=== PATIENT | female | born 1970 | race Caucasian/White ===

== ENCOUNTER 2024-12-10 08:17 | Outpatient (CLI) | payer OTHER, SELFPAY ==
--- NOTE | ~2024-12-10 | XR_ITS ---
EXAMINATION: XR lg joint inject/asp w image DATE: 12/10/2024 09:24 INDICATION: Right hip arthritis TECHNIQUE: A time-out was performed to verify the patient's name, date of , and procedure to be performed. The procedure including the risks, benefits, and alternatives was discussed with the patient. Risks discussed included bleeding and infection. The patient understood the risks and agreed to proceed. The skin overlying the right hip joint was prepped and draped in usual sterile fashion. Anesthetic was administered with 1% lidocaine subcutaneously. A 22 G needle was advanced under fluoroscopic guidance into the joint. Injection of 1 mL of Omnipaque 240 confirmed intra-articular position of the needle. Subsequently, injectate consisting of 3 mL of a 2:1 mixture of 0.5% bupivacaine: 80 mg/mL Depo-Medrol for a total dosage of 80 mg Depo-Medrol was instilled. Washout of contrast was seen confirming intra-articular administration. The needle was removed and the entry site was cleaned and dressed. There were no immediate complications. Fluoroscopy exposure time was 0.1 minutes. The total number of images was 2. Total DAP was 0.535 Gycm^2. FINDINGS: Real-time fluoroscopy demonstrates the needle and injected contrast in the right hip joint. Patient's pain prior to procedure:8/10. Patient's pain following the procedure: 07/29. IMPRESSION: 1. Successful right hip joint injection of local anesthetic and steroid with decrease in the patient's presenting pain. Reviewed, dictated and finalized at location A. IMPRESSION: 1. Successful right hip joint injection of local anesthetic and steroid with de crease in the patient's presenting pain.
--- OUTSIDE RECORDS SUMMARY | 2024-12-10 08:37 | XMS_ITS | Encounter Summary ---
Author Organization [facility] Address [address] [place] [address] Phone Care Team Providers Care Content Developer Name Role Phone Mohit Ch MD Primary Care Provider [phone] Lucas Brar MD Unavailable Guanaco Goss MD Unavailable Unavai lable Reason for Visit * Reason Comments Medication Refill Encounter Details Date Type Department Care Team (Late st Contact Info) Description 10/05/2021 Refill [facility] [address] [place] [address] Mohit Ch MD [address] [address] Medication Refill Social History Tobacco Use Types Packs/Day Years Used Date Smoking Tobacco: Former Smokeless Tobacco: Never Comments:quit in 2012 Alcohol Use Standard Drinks/Week Comments Yes 0 (1 standard drink = 0.6 oz pur e alcohol) Socially PHQ-2 Answer Date Recorded Total Score - Questions 1-9 0 08/20 Sexually Active Control Partners Comments Not Currently Comments No Sex and Gender Information Value Date Recorded Sex Assigned at Not on file Legal Sex Female 12:26 AM CDT Gender Identity Not on file Sexual Orientation Not on file COVID-19 Exposure Response Date Recorded In the last 10 days, have yo u been in contact with someone who was confirmed or suspected to have Coronavirus/COVID-19? No / Unsure 09/12/2021 2:40 PM CDT documented as of this encounter Miscellaneous Notes * Telephone Encounter - Julieta Aburto RN - 10/06/2021 9:23 AM CDT PRN medication requires review from provider Per nursing clinical judgement, provider to review and approve the medication(s) order(s) if appropriate. Requested Prescriptions Pending Prescriptions Disp Refills albuterol 108 (90 Base) MCG/ACT Aerosol Solution [Pharmacy Med Name: ALBUTEROL HFA (PROVENTIL) INH]18 g 2 Sig: INHALE 2 PUFFS BY MOUTH EVERY 4 HOURS NEEDED FOR WHEEZING OR SHORTNESS OF BREATH. Short Acting Inhaled Beta-Agonists Protocol Passed - 10/05/2021 2:11 PM Passed - Visit with relevant provider in past 12 months or upcoming 90 days Recent Visits Date Type Provider Dept 09/12/21 Office Visit Mohit Ch MD [facility] Showing recent visits within past 365 days and meeting all other requirements Future Appointments No visits were found meeting these conditions. Showing future appointments within next 90 days and meeting all other requirements documented in this encounter Plan of Treatment Not on file documented as of this encounter Visit Diagnoses Not on filedocumented in this encounter Additional Health Concerns Assessment Noted Time PHQ-9 Depression Total Score: 0 09/13/19 22 3:00 PM CDT documented as of this encounter Care Teams Content Developer Relationship Specialty Start Date End Date Mohit Ch MD #2 [facility] [address] [place] [address] PCP - General Family Medicine 09/12/21 04/27/24 Lucas Brar MD #[address] [address] Consulting Physician Colon and Rectal Surgery 10/13/21 Guanaco Goss MD [address] [place] [address] Consulting Physician Cardiovascular Disease - Cardiology 10/20/21 04/09/24 documented as of this encounter
--- OUTSIDE RECORDS SUMMARY | 2024-12-10 08:37 | XMS_ITS | Clinical Summary ---
Author Organization [facility] Address [address] [place] [address] Phone Care Team Providers Care Distribution Engineering Technologist Name Role Phone uLcas Brar MD Unavailable Allergies Active Allergy Reactions Criticality Noted Date Comments Propoxyphene Other (see Comments) Low 09/20/2020 Medications aspirin EC 81 MG Tablet Delayed Response Take by mouth. Activ e hydroCHLOROthia zide 25 MG Tablet Take by mouth. 7 Active metoprolol tartrate (LOPRESSOR) 100 MG Tablet Take by mouth. 8 Active simvastatin (ZOCOR) 40 MG Tablet Take by mouth. 8 Active meloxicam (MOBIC) 15 MG Tablet Take 15 mg by mouth. 2 Active metoprolol Succinate (TOPROL-XL) 50 MG TABLET SR 24 HR Take 50 mg by mouth daily. Active albuterol 108 (90 Base) MCG/ACT Aerosol Solution INHALE 2 PUFFS BY MOUTH EVERY 4 HOURS NEEDED FOR WHEEZING OR SHORTNESS OF BREATH. 18 g 2 2 Active Active Problems No known active problems Immunizations Immunization Administration Dates Next Due Influenza Vaccine, Quadrivalent, PF 12/25/2019,0 11/11/2018,01/31/2017 Influenza, Seasonal, Injectable, Undefined 02/12,01/19/2011 TDAP Vaccine 09/15/2012,05/12/2011 Family History Medical History Relation Name Comments Kidney Disease Brother 1 Multiple Sclerosis Brother 2 Heart Disease Father Multiple Sclerosis Father Breast Cancer Mother Relation Name Status Comments Brother 1 Brother 2 Father Mother Social History Tobacco Use Types Packs/Day Years Used Date Smoking Tobacco: Former Smokeless Tobacco: Never Tobacco Cessation:Counseling Given: No Comments:quit in 2012 Alcohol Use Standard Drinks/Week [...] on file Sexual Orientation Not on file Last Filed Vital Signs Vital Sign Reading Time Taken Comments Blood Pressure 122/63 11/07/2021 9:38 AM CDT Pulse 86 11/07/2021 9:38 AM CDT Temperature 36.1 C (96.9 F) 09/12/2021 3:48 PM CDT Respiratory Rate 14 10/31/2021 4:01 PM CDT Oxygen Saturation 96% 10/31/2021 4:01 PM CDT Inhaled Oxygen Concentration - - Weight 86.2 kg (190 lb) 11/07/2021 9:21 AM CDT Height 165.1 cm (5' 5) 11/07/2021 9:21 AM CDT Body Mass Index 31.62 11/07/2021 9:21 AM CDT Plan of Treatment Health Maintenance Due Date Last Done Comments Hepatitis C Virus (HCV) Screening 1969 Hepatitis B Immunization (1 of 3 - 19+ 3-dose series) 1988 Pap Smear 1990 Cervical Cancer Screening (CCS) 05/12/1999 HPV/Cotest 05/12/1999 Cologuard 2014 Colonoscopy 2014 Colorectal Cancer Screening 2014 Immunochemical Fecal Occult Blood 2014 Pneumococcal Immunization (50+ years) (1 of 1 - PCV) 05/12/2019 Zoster Immunization (1 of 2) 05/12/2019 Mammogram 07/08/2021 07/08/2020, 12/20, 04/10/2017 Influenza Immunization (#1) 10/20/202402/20, 12/25/2019, 11/11/2018, Additional history exists SARS-COV-2 Immunization ( - 2023- season) 2024 Respiratory Syncytial Virus (RSV) Immunization (Adult) (1 - 1-dose 75+ series) 2044 DTaP/Tdap/Td Immunization Discontinued 09/15/2012, Discussion re Starting/Frequency of Mammograms Discontinued 07/08/2020, 12/30/2018, 04/10/2017 Human Papillomavirus (HPV) Immunization Aged Out No longer eligible based on patient's age to complete this topic Meningococcal Immunization (ACWY) Aged Out No longer eligible based on patient's age to complete this topic Rotavirus Immunization Aged Out No lo nger eligible based on patient's age to complete this topic Insurance [employer] Care Teams Distribution Engineering Technologist Relationship Specialty Start Date End Date Lucas Brar MD [address] [place] [address] Consulting Physician Colon and Rectal Surgery 10/13/21
--- OUTSIDE RECORDS SUMMARY | 2024-12-10 08:38 | XMS_ITS | Encounter Summary ---
Author Organization [facility] Address [address] [place] [address] Phone Care Team Providers Care Assembler For Puller Over Machine Name Role Phone Fanny Van MD Unavailable Maria Luisa Sousa NP Primary Care Provider [phone]- [phone] Rosa Robison RN Unavailable Unavailabl Rosa Cuba RN Unavailable Unavailabl Annie Early RN Unavailable Unavailab Brant Garg MD Primary Care Provider [phone] Ayesha Luevano RN Unavailable Un available Maria Luisa Sousa NP Primary Care Provider [phone] Brant Pitt MD Primary Care Provider [phone] Maria Luisa Sousa GRAIN COMBINER Primary Care Provider [phone] Kadie Lucero DO Primary Care Provider + [phone] Shin Rainey MD Unavailable [phone] Gianluca Flores MD Unavailable Rosio Cristobal DO Unavailable [phone] Michael Miller MD Unavailable [phone] Leonardo Landis MD Unavailable [phone] Michael Mills MD Primary Care Provi arnold Encounter Details Date Type Department Care Team (Late st Contact Info) Description 02/16/2017 Orders Only [facility] ProviderKelsey MD [address] [place] [phone] Social History Tobacco Use Types Packs/Day Years Used Date Smoking Tobacco: Former Cigarettes Q uit: 2013 Smokeless Tobacco: Never Comments:Smoking History Pac ks/day: 1 Packs Alcohol Use Standard Drinks/Week Comments Yes 0 (1 standard drink = 0.6 oz pur e alcohol) socially Comments Unknown Sex and Gender Information Value Date Recorded Sex Assigned at Not on file Legal Sex Female 12:34 AM CONSUMER MARKETING MANAGER Gender Identity Not on file Sexual Orientation Not on file documented as of this encounter Plan of Treatment Not on file documented as of this encounter Goals Goal Patient Goal Type Associated Problems Recent Progress Patient-Stated? Author BH-Pain Behavioral Health Worsening(12/2018 9:47 AM CDT) No Rosa Robison, ELLEN Note: Patient will describe how unrelieved pain will be managed. documented as of this encounter Procedures Procedure Name Priority Date/Time Associated Diagnosis Comments DISCHARGE LABORATORY CUMULATIVE REPORT 02/16/2017 12:00 AM CONSUMER MARKETING MANAGER CYTOLOGY 02/16/2017 12:00 AM CONSUMER MARKETING MANAGER documented in this encounter Results * DISCHARGE LABORATORY CUMULATIVE REPORT (02/16/2017 12:00 AM CONSUMER MARKETING MANAGER) Narrative 02/16/2017 12:00 AM CONSUMER MARKETING MANAGER Ordered by an unspecified provider. [facility] Provider LAB BLOOD ORDERABLES Lona l Result * CYTOLOGY (02/16/2017 12:00 AM CONSUMER MARKETING MANAGER) Narrative 02/16/2017 12:00 AM CONSUMER MARKETING MANAGER Ordered by an unspecified provider. Historical Provider LAB CYTOLOGY ORDERABLES F inal Result documented in this encounter Visit Diagnoses Not on filedocumented in this encounter Additional Health Concerns Infection Onset Date Last Indicated Resolved Time COVID: Suspected 09/25/2019 09/25/2019 10/09/2019 3:05 AM CDT COVID: Suspected 05/30/2021 05/30/2021 05/30/2021 5:02 PM CDT COVID: Suspected 09/20/2021 09/20/2021 09/20/2021 5:26 PM CDT COVID: Suspected 09/22/2021 09/22/2021 09/23/2021 3:05 AM CDT COVID: Suspected 09/22/2021 09/22/2021 09/23/2021 5:25 AM CDT COVID: Suspected 11/02/2021 11/02/2021 11/02/2021 12:03 PM CDT COVID: Suspected 04/17/2024 04/17/2024 04/17/2024 4:23 PM CONSUMER MARKETING MANAGER documented as of this encounter Care Teams Assembler For Puller Over Machine Relationship Specialty Start Date End Date Maria Luisa Sousa NP [address] [place] [address] PCP - General Family Medicine 01/31/17 05/07/17 [place] [address] [address] PCP - General 05/08/17 09/30/17 Maria Luisa Sousa NP [address] [place] [address] PCP - General Family Medicine 10/01/17 10/11/17 [place] [address] [address] PCP - General 10/12/17 12/09/17 Maria Luisa Sousa NP [address] [place] [address] PCP - General Family Medicine 12/10/17 01/23/19 Kadie Lucero DO PCP - General Family Medicine 01/24/19 09/25/23 Michael Mills MD [address] [place] [address] PCP - General Family Practice 09/26/23 Fanny Van MD Rheumatology 10/19/16 12/11/17 Rosa Robison, RN Registered Nurse 02/08/17 Rosa Robison, RN Registered Nurse 03/13/17 03/29/17 Annie Galan, RN Registered Nurse Pain Management 04/10/17 Ayesha Luevano, RN Registered Nurse 09/21/17 12/11/17 Shin Rainey MD [address] [place] [address] [address] [facility] [place] [address] Consulting Physician Neurology 03/18/19 Gianluca Flores MD [address] [place] [address] [address] [facility] [place] [address] Consulting Physician General Surgery 03/18/19 Rosio Cristobal DO [address] [place] [address] [address] [facility] [place] [address] Consulting Physician Otolaryngology 03/18/19 Michael Miller MD [address] [place] [address] Consulting Physician Orthopedic Surgery 10/23/20 [place] [address] [place] [address] Consulting Physician Orthopedic Surgery 03/16/22 documented as of this encounter
--- OUTSIDE RECORDS SUMMARY | 2024-12-10 08:38 | XMS_ITS | Encounter Summary ---
Author Organization [facility] Address [address] [place] [address] Phone Care Team Providers Care Welder Fabricator Name Role Phone Fanny Van MD Unavailable Maria Luisa Sousa NP Primary Care Provider [phone]- [phone] Rosa Robison RN Unavailable Unavailabl Rosa Cuba RN Unavailable Unavailabl Annie Early RN Unavailable Unavailab Brant Garg MD Primary Care Provider [phone] Ayesha Luevano RN Unavailable Un available Maria Luisa Sousa NP Primary Care Provider [phone] Brant Pitt MD Primary Care Provider [phone] Maria Luisa Sousa SUPPLY REQUIREMENTS OFFICER Primary Care Provider [phone] Kadie Lucero DO Primary Care Provider + [phone] Shin Rainey MD Unavailable [phone] Gianluca Flores MD Unavailable Rosio Cristobal DO Unavailable [phone] Michael Miller MD Unavailable [phone] Leonardo Landis MD Unavailable [phone] Michael Mills MD Primary Care Provi arnold Encounter Details Date Type Department Care Team (Late st Contact Info) Description 02/20/2017 Orders Only [facility] Provider, MD Kelsey [address] [place] [phone] Social History Tobacco Use Types Packs/Day Years Used Date Smoking Tobacco: Former Cigarettes Q uit: 2013 Smokeless Tobacco: Never Comments:Smoking History Pac ks/day: 1 Packs Alcohol Use Standard Drinks/Week Comments Yes 0 (1 standard drink = 0.6 oz pur e alcohol) socially Comments Unknown Sex and Gender Information Value Date Recorded Sex Assigned at Not on file Legal Sex Female 12:34 AM ASSAULT AMPHIBIOUS VEHICLE CREWMAN Gender Identity Not on file Sexual Orientation Not on file documented as of this encounter Plan of Treatment Not on file documented as of this encounter Goals Goal Patient Goal Type Associated Problems Recent Progress Patient-Stated? Author BH-Pain Behavioral Health Worsening(12/2018 9:47 AM CDT) No Rosa Robison, RN Note: Patient will describe how unrelieved pain will be managed. documented as of this encounter Procedures Procedure Name Priority Date/Time Associated Diagnosis Comments DISCHARGE LABORATORY CUMULATIVE REPORT 02/20/2017 12:00 AM ASSAULT AMPHIBIOUS VEHICLE CREWMAN documented in this encounter Results * DISCHARGE LABORATORY CUMULATIVE REPORT (02/20/2017 12:00 AM ASSAULT AMPHIBIOUS VEHICLE CREWMAN) Narrative 02/20/2017 12:00 AM ASSAULT AMPHIBIOUS VEHICLE CREWMAN Ordered by an unspecified provider. Historical Provider LAB BLOOD ORDERABLES Lona l Result documented in this encounter Visit Diagnoses [...] COVID: Suspected 04/17/2024 04/17/2024 04/17/2024 4:23 PM ASSAULT AMPHIBIOUS VEHICLE CREWMAN documented as of this encounter Care Teams Welder Fabricator Relationship Specialty Start Date End Date Maria Luisa Sousa NP [address] [facility] [address] [place] [address] PCP - General Family Medicine 01/31/17 05/07/17 [place] [address] [address] PCP - General 05/08/17 09/30/17 Maria Luisa Sousa NP [address] [place] [address] [address] [place] [address] PCP - General Family Medicine 10/01/17 10/11/17 [place] [address] [address] PCP - General 10/12/17 12/09/17 Maria Luisa Souas NP [address] [place] [address] [address] [place] [address] PCP - General Family Medicine 12/10/17 01/23/19 Kadie Lucero DO PCP - General Family Medicine 01/24/19 09/25/23 Michael Mills MD [address] [place] [facility] [address] [place] [address] PCP - General Family Practice 09/26/23 Fanny Van MD Rheumatology 10/19/16 12/11/17 Rosa Robison, RN Registered Nurse 02/08/17 Rosa Robison, RN Registered Nurse 03/13/17 03/29/17 Annie Galan, RN Registered Nurse Pain Management 04/10/17 Ayesha Luevano, RN Registered Nurse 09/21/17 12/11/17 Shin Rainey MD [address] [facility] [address] [place] [address] Consulting Physician Neurology 03/18/19 Gianluca Flores MD [address] [facility] [address] [place] [address] Consulting Physician General Surgery 03/18/19 Rosio Cristobal DO [address] [facility] [address] [place] [address] Consulting Physician Otolaryngology 03/18/19 Michael Miller MD [address] [place] [address] Consulting Physician Orthopedic Surgery 10/23/20 [place] [address] [place] [address] Consulting Physician Orthopedic Surgery 03/16/22 documented as of this encounter
--- OUTSIDE RECORDS SUMMARY | 2024-12-10 08:39 | XMS_ITS | Encounter Summary ---
Author Organization [facility] Address [address] [place] [address] Care Team Providers Care Cisco Engineer Name Role Phone Rosa Robison RN Unavailable Unavailabl Annie Early RN Unavailable Unavailab Kadie Moon DO Primary Care Provider +- [phone] Shin Rainey MD Unavailable [phone] Gianluca Flores MD Unavailable Rosio Cristobal DO Unavailable [phone] Michael Miller MD Unavailable [phone] Leonardo Landis MD Unavailable [phone] Michael Mills MD Primary Care Provi arnold Reason for Visit * Reason Onset Date Comments Scheduling Appointments 07/07/2020 Confirmi ng mammogram appt- no answer Encounter Details Date Type Department Care Team (Late st Contact Info) Description 07/07/2020 Telephone [facility] [address] [place] [id number] [address] Scheduling Appointments (Confirming mammogram appt- no answer ) Social History Tobacco Use Types Packs/Day Years Used Date Smoking Tobacco: Former Cigarettes 2012 Smokeless Tobacco: Never Comments:Smoking History Pac ks/day: 1 Packs Alcohol Use Standard Drinks/Week Comments Yes 1 (1 standard drink = 0.6 oz pur e alcohol) socially PHQ-2 Answer Date Recorded PHQ-2 Total Score (If total score is 3 or more points, staff should administer the PHQ-9) 0 04/19/2020 Comments No Sex and Gender Information Value Date Recorded Sex Assigned at Not on file Legal Sex Female 12:34 AM ARTIST SUSPECT Gender Identity Not on file Sexual Orientation Not on file documented as of this encounter Plan of Treatment Not on file documented as of this encounter Goals Goal Patient Goal Type Associated Problems Recent Progress Patient-Stated? Author BH-Pain Behavioral Health Worsening(12/2018 9:47 AM CDT) No Rosa Robison, RN Note: Patient will describe how unrelieved pain will be managed. documented as of this encounter Visit Diagnoses Not on filedocumented in this encounter Additional Health Concerns Infection Onset Date Last Indicated Resolved Time COVID: Suspected 05/30/2021 05/30/2021 05/30/2021 5:02 PM CDT COVID: Suspected 09/20/2021 09/20/2021 09/20/2021 5:26 PM CDT COVID: Suspected 09/22/2021 09/22/2021 09/23/2021 3:05 AM CDT COVID: Suspected 09/22/2021 09/22/2021 09/23/2021 5:25 AM CDT COVID: Suspected 11/02/2021 11/02/2021 11/02/2021 12:03 PM CDT COVID: Suspected 04/17/2024 04/17/2024 04/17/2024 4:23 PM ARTIST SUSPECT documented as of this encounter Care Teams Cisco Engineer Relationship Specialty Start Date End Date Kadie Lucero DO PCP - General Family Medicine 01/24/19 09/25/23 Michael Mills MD [address] [address] [address] PCP - General Family Practice 09/26/23 Rosa Robison, RN Registered Nurse 02/08/17 Annie Galan, RN Registered Nurse Pain Management 04/10/17 Shin Rainey MD 4 [facility] [address] [facility] [place] [address] Consulting Physician Neurology 03/18/19 Gianluca Flores MD [address] [place] [address] [address] [facility] [place] [address] Consulting Physician General Surgery 03/18/19 Rosio Cristobal DO [address] [place] [address] [address] [facility] [place] [address] Consulting Physician Otolaryngology 03/18/19 Michael Miller MD [address] [facility] [address] [facility] [address] [place] [address] Consulting Physician Orthopedic Surgery 10/23/20 [place] [address] [facility] [address] [place] [address] Consulting Physician Orthopedic Surgery 03/16/22 documented as of this encounter
--- OUTSIDE RECORDS SUMMARY | 2024-12-10 08:39 | XMS_ITS | Clinical Summary ---
Author Organization [facility] Address [address] [place] [address] Care Team Providers Care Overnight Associate Name Role Phone Rosa Robison RN Unavailable UnavailAnnie Keys RN Unavailable Unavailab Shin Caicedo MD Unavailable [phone] Gianluca Flores MD Unavailable Rosio Cristobal DO Unavailable [phone] Michael Miller MD Unavailable [phone] Leonardo Landis MD Unavailable [phone] Michael Mills MD Primary Care Provi arnold Allergies Active Allergy Reactions Criticality Noted Date Comments Propoxyphene-Acetaminophen Itching Low Propoxyphene Napsylate Other (See comments) Low 03/2020 Medications aspirin 81 mg enteric coated tabletIndications:Prima ry hypertension,Pure hypercholesterolemia Take 1 tablet (81 mg total) by mouth daily 90 tablet 3 023 Active ascorbic acid (VITAMIN C) 500 mg tablet,chewable Take 1 tablet/chew tab (500 mg total) by mouth 2 (two) times a day 60 tablet/chew tab 024 Active ondansetron (ZOFRAN) 4 mg tabletIndications:Preve ntion of Post-Operative Nausea and Vomiting Take 1 tablet (4 mg total) by mouth every 6 (six) hours as needed for nausea or vomiting 30 tablet 1 024 Active albuterol 2.5 mg /3 mL (0.083 %) nebulizer solutionIndications:Mil d intermittent asthma without complication Take 3 mL (2.5 mg total) by nebulization every 6 (six) hours as needed for wheezing 75 mL 6 024 Active gabapentin (NEURONTIN) 300 mg capsuleIndications:Neur opathic Pain Take 1 capsule (300 mg total) by mouth 3 (three) times a day 270 capsule 1 024 Active cholecalciferol (VITAMIN D-3) 2000 unit capsuleIndications:Low vitamin D level Take 1 capsule (2,000 Units total) by mouth daily 90 capsule 1 024 Active meclizine (ANTIVERT) 25 mg tabletIndications:Verti go Take 1 tablet (25 mg total) by mouth 2 (two) times a day 60 tablet 2 025 Active meloxicam (MOBIC) 15 mg tabletIndications:Osteo arthritis TAKE 1 TABLET (15 MG TOTAL) BY MOUTH DAILY. 90 tablet 1 025 Active albuterol HFA (PROVENTIL HFA,VENTOLIN HFA,PROAIR HFA) 90 mcg/actuation inhalerIndications:Mild intermittent asthma without complication INHALE 2 PUFFS BY MOUTH EVERY 4 HOURS NEEDED FOR WHEEZE OR FOR SHORTNESS OF BREATH 40.2 each 1 025 Active omeprazole (PriLOSEC) 20 mg capsuleIndications:Deshawn roesophageal reflux disease without esophagitis TAKE 1 CAPSULE BY MOUTH EVERY DAY 90 capsule 3 025 Active lisinopriL (PRINIVIL,ZESTRIL) 40 mg tabletIndications:Prima ry hypertension TAKE 1 TABLET BY MOUTH EVERY DAY 100 tablet 1 025 Active traZODone (DESYREL) 100 mg tabletIndications:Prima ry insomnia TAKE 2 TABLETS BY MOUTH NIGHTLY 180 tablet 1 025 Active cetirizine (ZyrTEC) 10 mg tabletIndications:Mild intermittent asthma without complication TAKE 1 TABLET BY MOUTH EVERY DAY NEEDED FOR ALLERGY 90 tablet 3 025 Active chlorthalidone (HYGROTON) 50 mg tabletIndications:Prima ry hypertension Take 1 tablet (50 mg total) by mouth daily 90 tablet 025 2024 Active metoprolol tartrate (LOPRESSOR) 25 mg immediate release tablet Take 1 tablet (25 mg total) by mouth every morning 90 tablet 1 Active amLODIPine (NORVASC) 10 mg tabletIndications:Prima ry hypertension Take 1 tablet (10 mg total) by mouth daily 90 tablet 1 025 2025 Active atorvastatin (LIPITOR) 80 mg tabletIndications:Pure hypercholesterolemia Take 1 tablet (80 mg total) by mouth daily 90 tablet 1 025 2025 Active semaglutide (Wegovy) 1 mg/0.5 mL auto-injectorIndication s:Class 1 obesity due to excess calories with serious comorbidity and body mass index (BMI) of 34.0 to 34.9 in adult,Prediabetes Inject 1 mg under the skin every 7 days 2 mL 2 025 2024 Active Active Problems Problem Noted Date Diagnosed Date Trigger point 10/01/2024 Assessment & Plan (10/01/2024 5:35 PM CDT): Trigger finger of left thumb 06/02/2024 Assessment & Plan (06/02/2024 7:45 AM CDT): Acute non-recurrent sinusitis 06/02/2024 Assessment & Plan (06/02/2024 7:45 AM CDT): Other fatigue 11/26/2023 CMC arthritis 06/07/2023 De Quervain's tenosynovitis 06/07/2023 Arthritis of carpometacarpal (CMC) joint of righ t thumb 06/05/2023 Assessment & Plan (06/05/2023 8:29 PM CDT): Per Ortho. Patient rené for surgery. De Quervain's tenosynovitis, right 06/05/2023 Assessment & Plan (06/05/2023 8:29 PM CDT): Per Ortho, rené for surgery. Influenza vaccine refused 01/25/2023 Generalized anxiety disorder 05/20/2022 Assessment & Plan (01/25/2023 1:49 PM ARROW POINT ATTACHER): Clinically improved, continue current prescription medications, continue sertraline. Assessment & Plan (05/20/2022 10:02 PM CDT): Stable. Cont. Current prescription medications, sertraline. Instability of internal right knee prosthesis Overview (09/23/2020): Added automatically from request for surgery [id number] Abnormal mammogram of right breast 07/08/2020 Migraine without status migrainosus, not intract able 06/23/2020 Assessment & Plan (09/24/2022 2:27 PM CDT): Toradol inj ordered. Assessment & Plan (06/23/2020 2:06 PM CDT): Patient no-showed for her Neurology appointment. Patient encouraged to call Neurology and reschedule her appointment. Patient was giving a warning about her frequent no-shows with multiple practices, she understands that if she continues to have no show she may be dismissed from that particular practice. Lumbar strain, initial encounter 04/09/2020 s/p L4-5 fredrick-laminectomy 04/09/2020 H/O vertigo 01/26/2020 Assessment & Plan (01/25/2023 1:49 PM ARROW POINT ATTACHER): Symptoms come and go, refilled meclizine, use as directed. Assessment & Plan (01/26/2020 10:47 AM ARROW POINT ATTACHER): Right sided Benign Positional Vertigo treated with Velvet maneuver today Stop meclizine Post-Velvet instructions discussed and Handout provided Prediabetes 12/25/2019 Assessment & Plan (10/01/2024 5:35 PM CDT): Assessment & Plan (06/02/2024 7:49 AM CDT): Has a history of prediabetes so I will recheck A1c in three months Orders: Hemoglobin A1c; Future Assessment & Plan (06/05/2023 8:29 PM CDT): Low carbs diet recommended, increase daily exercise and decrease weight. Assessment & Plan (01/25/2023 1:49 PM ARROW POINT ATTACHER): Low-carbohydrate diet recommended, labs ordered, will follow. Assessment & Plan (05/20/2021 11:09 AM CDT): Labs ordered, will follow. Assessment & Plan (07/29/2020 8:42 AM CDT): Continue to watch glycemic intake Essential tremor 09/15/2019 Numbness and tingling of upp er and lower extremities of both sides 09/10/2019 Gastroesophageal reflux disease without esophagi tis 05/22/2019 Assessment & Plan (01/25/2023 1:47 PM ARROW POINT ATTACHER): Asymptomatic. Stable. Continue current prescription medications, omeprazole. Assessment & Plan (05/20/2022 9:58 PM CDT): Asymptomatic. Stable. Continue current prescription medications, omeprazole. Assessment & Plan (05/20/2021 11:14 AM CDT): Mildly symptomatic. Cont current Rx meds. Assessment & Plan (04/19/2020 1:25 PM ARROW POINT ATTACHER): Asx. Continue current therapy. Assessment & Plan (12/25/2019 3:46 PM ARROW POINT ATTACHER): Asx. Continue current therapy. Assessment & Plan (05/22/2019 3:40 PM CDT): Clinically improved, continue current meds. Mild intermittent asthma without complication Assessment & Plan (06/05/2023 8:28 PM CDT): Asymptomatic. At baseline. Continue current prescription medications, albuterol, cetirizine. Assessment & Plan (01/25/2023 1:48 PM ARROW POINT ATTACHER): Currently asymptomatic, at baseline, continue current prescription medications, albuterol. Assessment & Plan (05/20/2022 9:57 PM CDT): Asymptomatic, at baseline, continue albuterol hfa. Assessment & Plan (05/20/2021 11:13 AM CDT): Refills given. Currently with an exacerbation. Assessment & Plan (06/23/2020 2:05 PM CDT): Trial of prednisone 20 mg once daily for 5 days. Continue using albuterol as directed. Encouraged patient to restart her allergy medications intake on a consistent basis, this includes her cetirizine 10 mg once a day and Flonase 2 sprays each nostril once a day. Assessment & Plan (04/19/2020 1:26 PM ARROW POINT ATTACHER): Wheezing off and on over the past few weeks. Has been using albuterol inhaler little bit more. Encouraged use of [id number] antihistamine of choice, as spring is approaching. Assessment & Plan (12/25/2019 3:47 PM ARROW POINT ATTACHER): Asx. Continue current therapy. Assessment & Plan (05/22/2019 3:41 PM CDT): Stable. Cont. Current meds. Primary insomnia 05/22/2019 Assessment & Plan (01/25/2023 1:48 PM ARROW POINT ATTACHER): Still having difficulty swallowing asleep and staying asleep. Referred to sleep Medicine for further management, continue trazodone. Assessment & Plan (05/20/2021 11:10 AM CDT): Improved with medication, refill given. Assessment & Plan (04/19/2020 1:27 PM ARROW POINT ATTACHER): Clinically improved, continue current meds. Assessment & Plan (12/25/2019 3:48 PM ARROW POINT ATTACHER): Clinically improved, continue current meds. Assessment & Plan (07/10/2019 2:44 PM CDT): Having trouble staying asleep. States trazodone has helped in the past, but now she is waking after 3-4 hours of sleep and cannot fall back to sleep. Wants to try increasing the trazodone. Discussed dosing on trazodone. Will try increasing to 150mg daily. Pt has f/u with Dr. Lucero in september. Assessment & Plan (05/22/2019 3:42 PM CDT): Clinically improved, continue current meds. Mild episode of recurrent major depressive disor arnold 05/22/2019 Assessment & Plan (06/02/2024 7:45 AM CDT): Assessment & Plan (01/25/2023 1:48 PM ARROW POINT ATTACHER): Clinically improved, continue current prescription medications, continue sertraline. Assessment & Plan (05/20/2022 9:57 PM CDT): Stable. Cont. Current prescription medications, sertraline. Assessment & Plan (05/20/2021 11:10 AM CDT): Stable. Cont. Current prescription medications. Assessment & Plan (04/19/2020 1:27 PM ARROW POINT ATTACHER): Stable. Cont. Current meds. Primary osteoarthritis of right hip 03/03/2019 Joint pain in fingers of both hands 02/13/2019 Assessment & Plan (02/13/2019 1:25 PM ARROW POINT ATTACHER): Labs ordered. Consider Rheumatology referral. Paresthesia of both hands 02/13/2019 Assessment & Plan (05/20/2022 9:58 PM CDT): Clinically improved, continue current prescription medications, gabapentin. Assessment & Plan (05/20/2021 11:14 AM CDT): Stable. Cont. Current prescription medications. Assessment & Plan (04/19/2020 1:28 PM ARROW POINT ATTACHER): Stable. Cont. Current meds. Assessment & Plan (12/25/2019 3:47 PM ARROW POINT ATTACHER): Clinically improved, continue current meds. Assessment & Plan (02/13/2019 1:23 PM ARROW POINT ATTACHER): Labs ordered, referral to neurology given. Increased gabapentin. Titrate up to 300mg tid as tolerated. Class 1 obesity due to exces s calories with serious comorbidity and body mass index (BMI) of 33.0 to 33.9 in adult 02/13/2019 Assessment & Plan (10/01/2024 5:35 PM CDT): Orders: semaglutide (OZEMPIC) 1 mg/dose (4 mg/3 mL) pen injector injection; Inject 1 mg under the skin every 7 days Assessment & Plan (06/02/2024 7:49 AM CDT): Increasing tirzepatide Orders: tirzepatide (MOUNJARO) 10 mg/0.5 mL pen injector injection; Inject 0.5 mL (10 mg total) under the skin every 7 days Assessment & Plan (06/05/2023 8:28 PM CDT): Weight reduction, daily exercise and dietary modifications recommended., as obesity can complicate their hypertension Assessment & Plan (05/20/2021 11:14 AM CDT): Weight reduction, daily exercise and dietary modifications recommended. Assessment & Plan (07/29/2020 8:44 AM CDT): The patient would be a good candidate for weight loss surgery given her comorbid conditions. During the process will have her seen by psych as well as the dietitian. As we get closer to surgery we will set her up for an EGD to evaluate for H pylori as well as hiatal hernia. We have discussed postoperative complications such as bleeding, blood clots, new onset reflux as well as anastomotic leak. She is in understanding. We have discussed small frequent meals 4 to 5 times a day with a goal calorie intake of around 1600 calories. We have discussed avoiding eating late at night. We have discussed a cardiovascular exercise regimen even if it is just walking around the block 2 to 3 times a week. She is in understanding. We will see her back next month. Assessment & Plan (06/23/2020 2:06 PM CDT): Weight reduction, daily exercise and dietary modifications recommended. Assessment & Plan (12/25/2019 3:48 PM ARROW POINT ATTACHER): Weight reduction, daily exercise and dietary modifications recommended. Assessment & Plan (07/23/2019 10:59 AM CDT): Weight reduction, daily exercise and dietary modifications recommended. Assessment & Plan (05/22/2019 3:42 PM CDT): Weight reduction, daily exercise and dietary modifications recommended. Allergic rhinitis 06/04/2018 Assessment & Plan (07/23/2019 10:59 AM CDT): Cont current meds, Rx refill given. Assessment & Plan (06/04/2018 9:49 AM CDT): Nasal saline followed by Flonase 2 sprays into each nostril while looking down over the sink, do not sniff in or blow nose after use. Start Cetirizine 10 mg daily Follow up in 4-6 weeks if no improvement Breast cyst, left 03/14/2018 Assessment & Plan (04/22/2020 11:15 AM ARROW POINT ATTACHER): Given that the area is actively infected currently I will place her on a course of antibiotics. It is spontaneously draining to hold off on opening up formally. She is set to have her yearly mammogram this past February but missed it due to family issues. She is calling to set that up currently. Were going to see her back in several weeks after she has finished a course of antibiotics and her mammogram has been completed. I favor this to be a simple cyst. As it has recurred as long as her mammogram is normal we will set her up for removal so this does not come back again. She is in understanding. Assessment & Plan (03/14/2018 4:31 PM ARROW POINT ATTACHER): Start antibiotics, use warm compress to encourage drainage and for comfort. If no improvement after a few days please call back. When all inflammation and drainage have ceased may schedule for epidermoid cyst excision with . Lumbar post-laminectomy syndrome-S/P discectomy 03/04/2018 Chronic right-sided low back pain without sciati ca 12/12/2017 Assessment & Plan (01/25/2023 1:47 PM ARROW POINT ATTACHER): Pain improved with meloxicam. Patient ran out a few weeks ago, refill sent. Lumbar facet joint syndrome 05/29/2017 Non-toxic multinodular goiter 04/24/2017 Assessment & Plan (01/25/2023 1:47 PM ARROW POINT ATTACHER): Asymptomatic. Labs ordered, will follow. Assessment & Plan (04/27/2020 10:56 AM ARROW POINT ATTACHER): Multinodular goiter detected in 2011, with main nodule on the right lobe 1.2 cm , which was benign by FNA biopsy in 2011. Ultrasound in March 2017, showed no significant change in thyroid nodules, Patient is clinically euthyroid with normal TSH 2.1 on 12/29/19 . Plan: The diagnosis and previous ultrasounds reviewed with patient Informed patient that the thyroid is not the cause of her trouble swallowing. If continues needs to see ENT We will check one final time on the thyroid with Ultrasound this month. Arthritis of right knee 10/19/2016 Assessment & Plan (10/19/2016 3:30 PM CDT): Patient has moderate arthritic changes radiographically. The patient had a recent injection six weeks ago and is too soon to provide any follow-up one. With better stability she may have less irritation of the knee and less swelling. The patient may find ice packs elevation and anti-inflammatories helpful to a degree as well. She is return the office on an as-needed basis and avoid weight gain or high impact activities Former smoker 07/05/2013 Overview (12/26/2017): Quit 2013 Primary hypertension 07/05/2013 Assessment & Plan (10/01/2024 5:35 PM CDT): Orders: chlorthalidone (HYGROTON) 50 mg tablet; Take 1 tablet (50 mg total) by mouth daily amLODIPine (NORVASC) 10 mg tablet; Take 1 tablet (10 mg total) by mouth daily Assessment & Plan (06/02/2024 7:49 AM CDT): Controlled and at goal Orders: Comprehensive metabolic panel; Future Lipid panel; Future Assessment & Plan (06/05/2023 8:27 PM CDT): Blood pressure at goal less than 140/90, continue current prescription medications, HCTZ, lisinopril, metoprolol. Assessment & Plan (01/25/2023 1:46 PM ARROW POINT ATTACHER): Blood pressure above goal of less than 140/90, low-sodium diet recommended. Continue hydrochlorothiazide, lisinopril, metoprolol. Assessment & Plan (05/20/2022 10:00 PM CDT): Blood pressure at goal less than 140/90, continue current prescription medications, HCTZ, lisinopril, metoprolol. Assessment & Plan (05/20/2021 11:15 AM CDT): BP at goal of < 140/90. Cont current Rx meds. Assessment & Plan (07/29/2020 8:42 AM CDT): Continue current medical regimen Assessment & Plan (06/23/2020 2:06 PM CDT): Blood pressure is low but patient remains asymptomatic. Decrease lisinopril 20 mg daily down to 10 mg daily. Assessment & Plan (04/27/2020 10:56 AM ARROW POINT ATTACHER): Controlled with medication - low salt diet - continue medication per PCP Assessment & Plan (04/19/2020 1:24 PM ARROW POINT ATTACHER): Blood pressure well controlled. Continue current medications. Assessment & Plan (12/25/2019 3:46 PM ARROW POINT ATTACHER): Clinically improved, continue current meds. Assessment & Plan (05/22/2019 3:40 PM CDT): Asx. Cont current meds. Pure hypercholesterolemia 07/05/2013 Overview (12/25/2019): Assessment & Plan (10/01/2024 5:35 PM CDT): Orders: atorvastatin (LIPITOR) 80 mg tablet; Take 1 tablet (80 mg total) by mouth daily Assessment & Plan (01/25/2023 1:47 PM ARROW POINT ATTACHER): LDL very elevated, not at goal of less than 100. Patient ran out of her cholesterol medications. Prescription sent. Low-cholesterol diet recommended. Assessment & Plan (05/20/2022 10:00 PM CDT): LDL not at goal, elevated. Low chol diet recommended. Encouraged compliance with simvastatin. Assessment & Plan (05/20/2021 11:15 AM CDT): Elevated, low samuel diet recommended. Cont current meds. Labs ordered, will follow. Assessment & Plan (04/19/2020 1:25 PM ARROW POINT ATTACHER): Low-cholesterol diet recommended. Will have fenofibrate to daily regiment. Continue simvastatin. Assessment & Plan (12/25/2019 3:46 PM ARROW POINT ATTACHER): Elevated, low-cholesterol diet recommended. Labs ordered. Continue current medication Assessment & Plan (05/22/2019 3:40 PM CDT): Low chol diet recommended. Resolved Problems Problem Noted Date Diagnosed Date Resolved Date Viral gastroenteritis 05/31/20212022 Mild intermittent asthma wit h acute exacerbation 05/20/2021 01/09/2024 Assessment & Plan (09/24/2022 2:27 PM CDT): Rxs given, continue albuterol. Increase fluid intake. Rest. Assessment & Plan (05/20/2021 11:16 AM CDT): Add omar Starks. Prednisone prescribed. Cont current Albuterol HFA inh as directed. Notify our office of no improvement. Trochanteric bursitis, left hip 07/15/2020 05/20/2021 Hip abductor tendinitis, right 07/12/2020 05/20/2021 Encounter for screening colonoscopy 06/21/2020 05/20/2021 Overview (06/21/2020): Added automatically from request for surgery [id number] Fatigue 04/19/2020 05/20/2021 Assessment & Plan (04/19/2020 1:27 PM ARROW POINT ATTACHER): Possibly deconditioning is the cause. Patient encouraged to exercise more. Most recent TSH was within normal limits. Facial pain 01/19/2020 05/20/2021 Overview (01/19/2020): Added automatically from request for surgery [id number] Facial laceration 01/19/2020 05/20/2021 Overview (01/19/2020): Added automatically from request for surgery [id number] Injury of face 01/19/2020 05/20/2021 Overview (01/19/2020): Added automatically from request for surgery [id number] Scar 01/19/2020 05/20/2021 Overview (01/19/2020): Added automatically from request for surgery [id number] Anemia 12/25/2019 01/25/2023 Dizziness 12/25/2019 05/20/2021 Assessment & Plan (12/25/2019 3:47 PM ARROW POINT ATTACHER): Not currently dizzy. Trial of meclizine. If no resolution of symptoms consider ENT referral Encounter for screening colonoscopy 07/22/2019 12/25/2019 Overview (07/22/2019): Added automatically from request for surgery [id number] Cellulitis and abscess of right leg 01/01/2019 05/22/2019 Assessment & Plan (01/10/2019 11:00 AM ARROW POINT ATTACHER): The patient is currently on a diuretic already. She has lost her primary care. She is going to call the office to see if perhaps they need to increase her diuretic dose to help get off some of this extra fluid. I will also send in a prescription for a compression stocking for the right lower leg as the majority of her persistent pain is in the lower leg and foot just because of how edematous it is. She is in understanding of the plan. She will call us back if the swelling persists despite the compression stocking and if her diuretic is increased. Current moderate episode of major depressive disorder without prior episode 12/26/2018 1 Assessment & Plan (12/25/2019 3:47 PM ARROW POINT ATTACHER): Stable. Cont. Current meds. Assessment & Plan (05/22/2019 3:41 PM CDT): Worsening, increase sertraline 50 mg every day to 100mg every day. Cellulitis of right knee 12/25/201803/2019 Assessment & Plan (12/31/2018 9:34 AM ARROW POINT ATTACHER): It appears that the patient has developed now an abscess on the posterior aspect of the right leg. Given the recent hardware in the leg and close proximity to the joint space, I will send her back to the ER for repeat imaging. If it appears that it is tracking down to the joint space ortho may be better suited to evaluate. The patient is in understanding of the plan. Assessment & Plan (12/25/2018 2:47 PM ARROW POINT ATTACHER): Due to concern for no improvement over cellulitis and possible deep abscess, we discussed having patient admitted for iv antibiotics, CT imaging, and possible surgery tomorrow. If there does appear to have correlation with hardware from previous knee replacements, will have to discuss case with patients orthopedist at [facility] publishing specialist. Patient agrees to this treatment plan. Assessment & Plan (12/25/2018 10:58 AM ARROW POINT ATTACHER): Refer to surgery for further evaluation and possible I&D. Sent to [facility] for x-ray of right knee. human performance consultant (current) use of opiate analgesic 11/29/2018 01/25/2023 Biliary dyskinesia 08/20/2018 9 Overview (08/20/2018): Added automatically from request for surgery [id number] Assessment & Plan (08/20/2018 10:19 AM CDT): The procedure along with the risks, benefits, and post operative period were discussed with the patient to which she agrees. Will plan for lap samuel for typical symptoms of biliary dyskinesia. Dysfunctional gallbladder 08/15/2018 Assessment & Plan (08/15/2018 10:39 AM CDT): Pt had HIDA scan which found low gallbladder EF. Spoke with Dr. Roblero who suggested referring patient to surgery for possible cholecystectomy. Referral placed and patient walked down to manager service desk of general surgery to make appointment. Nausea & vomiting 08/15/2018 11/11/2018 Assessment & Plan (08/15/2018 10:40 AM CDT): Pt says she has been taking zofran prn nausea. She says this helps her symptoms. Called in rx for zofran to use TID prn nausea. RUQ pain 07/04/2018 11/11/2018 Overview (07/04/2018): Added automatically from request for surgery [id number] Assessment & Plan (08/15/2018 10:41 AM CDT): Related to low EF of gallbladder. This pain worsens after meals. Advised to stick with low fat diet. Pt referred to surgeon. Assessment & Plan (07/09/2018 4:13 PM CDT): Consult pain in a patient with the fatty liver disease. She has occasional use of nonsteroidal medications. No worrisome signs. It feels he is not very clear at this point. We will schedule upper endoscopy. Patient discussed with the patient to start a bland low-fat diet. Continue omeprazole for the time being and follow-up in 6 weeks. 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 A hinged knee brace was provided to wear when on uneven terrain him when performing more rigorous activities. Arthropathy of lumbar facet joint 06/12/2014 05/29/2017 Overview (05/25/2016): Facet arthropathy, lumbar Sciatica 06/12/2014 05/29/2017 Overview (05/25/2016): Sciatica Subcutaneous cyst 09/02/2013 11/11/2018 Overview (05/25/2016): MIGRNE UNSP WO NTRC MGRN Assessment & Plan (02/20/2017 8:57 AM [employer]): Patient already had mammogram scheduled for the next month so we will change to diagnostic mammogram, the lesion is Characteristic of epidermoid cyst. Hypertension 07/05/2013 01/31/2017 Overview (05/26/2016): HYPERTENSION NOS Thyroid nodule 07/14/2011 01/25/2023 Overview (12/12/2017): Thyroid nodule 02/16/17 thyroid ultrasound 12 mm nodule unchanged from previous imaging, biopsy is normal Encounters Date Type Department Care Team Description 10/13/2024 Orders Only [facility] at [place] [phone] Bianca Lazaro MA 10/01/2024 5:15 PM CDT Office Visit [facility] at [address] [phone] Michael Mills MD Primary hypertension (Primary Dx); Class 1 obesity due to excess calories with serious comorbidity and body mass index (BMI) of 33.0 to 33.9 in adult; Prediabetes; Pure hypercholesterolemia; Trigger point 09/25/2024 Results Follow-Up [facility] at [address] [phone] Michael Mills MD Comprehensive metabolic panel, Lipid panel, Hemoglobin A1c, Additional followed-up results: 3 09/24/2024 8:40 AM CDT Lab [facility] - Outpatient Center at [address] [id number] Primary hypertension; Prediabetes; Vitamin D deficiency from Last 3 Months Immunizations Immunization Administration Dates Next Due Influenza, Quadrivalent, Spl it, Preservative Free, Intramuscular 03/16/2022,12/25/2019,11/11/2018,01/31 Influenza, Trivalent, IM (MDV) 02/12/2011,2010 Influenza, Unspecified 11/29/2023(Deferr ed: Patient Refused),11/29/2023(Deferred: Patient Refused),11/29/2023(Deferred: Patient Refused),03/16/2022,02/12/2011, 011 Tdap 09/15/2012,05/12/2011 Surgical History Surgery Date Site/Laterality Comments HEMORRHOID SURGERY 02/19/2005 - 02/18/2006 KNEE ARTHROSCOPY 02/19/2006 - 02/18/2007 Right TUBAL LIGATION 02/19/1995 - 02/19/1996 KNEE ARTHROSCOPY 02/20/1992 - 02/18/1993 Left US GUIDED BIOPSY RENAL 05/01/2018 N/A CHOLECYSTECTOMY 02/19/2018 - 02/18/2019 PARTIAL KNEE ARTHROPLASTY 03/05/2018 Right POSTERIOR LAMINECTOMY / DECOMPRESSION LUMBAR SPINE 02/19/2009 - 02/18/2010 ELBOW SURGERY 02/19/2014 - 02/18/2015 Right tendon repair COLONOSCOPY 02/20/2004 - 02/18/2005 REPLACEMENT TOTAL KNEE 08/20/2019 - 09/19/2019 Right BREAST CYST ASPIRATION 02/19/2018 - 02/18/2019 Left Medical History Medical History Date Comments Disorder of thyroid Thyroid dise ase; Comments: TM 06/12/2014 -Benign tumor Breast cyst Hypertension Chronic kidney disease Minimal C hange Disease Hyperlipidemia DDD (degenerative disc disease), cervical Peripheral neuropathy Asthma Depression DDD (degenerative disc disease), lumbar Gastroesophageal reflux dise ase without esophagitis Gait instability Headache, tension-type 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 Obesity Pre-diabetes Thyroid nodule Family History Medical History Relation Name Comments Hypertension Brother 1 Rj Kidney disease Brother 1 Rj Other Brother 1 Rj Kidney transpla nt x 2; Hypertension Brother 3 older Multiple sclerosis Brother 3 older Kidney disease Brother 4 Coronary artery disease Father Benedict nary artery disease, premature; Cause of : Coronary artery disease, premature Hypertension Father Multiple sclerosis Father age 47 from complications of MS Stroke Father Breast cancer Mother Living age 75 Coronary artery disease Mother Hypertension Mother Other Mother Alive and well; Arthritis Other Cancer Other Hypertension Sister Anesthesia problems Neg Hx Relation Name Status Comments Brother 1 Rj Alive Brother 2 Hector Alive Brother 3 older Alive Brother 4 Father (Age 47) Mother Alive Other Sister Social History Tobacco Use Types Packs/Day Years Used Date Smoking Tobacco: Former Cigarettes 1 29 1 2012 Smokeless Tobacco: Never Tobacco Cessation:Counseling Given: Not Answered Alcohol Use Standard Drinks/Week Comments Yes 1 (1 standard drink = 0.6 oz pur e alcohol) socially AUDIT-C Answer Date Recorded Q1: How often do you have a drink containing alc ohol? 2-4 times a month 06/19/2023 Q2: How many drinks containi ng alcohol do you have on a typical day when you are drinking? 1 or 2 06/19/2023 Q3: How often do you have si x or more drinks on one occasion? Never 06/19/2023 PHQ-2 Answer Date Recorded PHQ-2 Total Score (If total score is 3 or more points, staff should administer the PHQ-9) 0 10/01/2024 PHQ-9 Answer Date Recorded PHQ-9 Total Score 0 10/01/2024 Personal Safety Answer Date Recorded Have you ever been in or are you currently in a harmful physical or emotional relationship or is someone making you feel afraid or unsafe? Denies 06/19/2023 Comments No Sex and Gender Information Value Date Recorded Sex Assigned at Not on file Legal Sex Female 12:34 AM [employer] Gender Identity Not on file Sexual Orientation Not on file Obstetrics History Para Term AB IAB SAB Ectopic Multiple Livin g Live Births 2 2 2 2 2 Date Outcome GA Total Labor Labor/2nd/3rd Weight Sex Type Anes PTL Karina A1 A5 Name Clin Term M Vag-S pont Living Term M Vag-S pont Living Last Filed Vital Signs Vital Sign Reading Time Taken Comments Blood Pressure 190/96 10/01/2024 4:52 PM CDT Pulse 79 10/01/2024 4:47 PM CDT Temperature 36.6 C (97.9 F) 10/01/2024 4:47 PM CDT Respiratory Rate 20 10/01/2024 4:47 PM CDT Oxygen Saturation 98% 10/01/2024 4:47 PM CDT Inhaled Oxygen Concentration - - Weight 90.3 kg (199 lb) 10/01/2024 4:47 PM CDT Height 165.1 cm (5' 5) 10/01/2024 4:47 PM CDT Body Mass Index 33.12 10/01/2024 4:47 PM CDT Plan of Treatment Health Maintenance Due Date Last Done Comments Colon Cancer Screening-Colonoscopy 1969 Hepatitis B Screening 05/12/1987 Lung Cancer Screening 05/12/2019 Zoster Vaccine (1 of 2) 05/12/2019 Breast Cancer Screening-Mammogram 07/08/2021 07/08/2020, 12/30/2018, 04/10/2017, Additional history exists DTaP/Tdap/Td Vaccine (3 - Td or Tdap) 09/15/2022 09/15/2012, 05/12/2011 Cervical Cancer Screening 11/06/2022 11/06/2017, Regular Well Visit/Exam 18-64 05/17/2023 05/16/2022, 04/19/2020 Influenza Vaccine (#1) 2024 , 03/16/2022, 12/25/2019, Additional history exists Pneumococcal vaccine <65 (1 of 2 - PCV) 05/18/2025 Postponed from 1988 (Patient declined, but will receive in the future) Depression Screening 10/01/2025 10/01/2024, 10/01/2024, 09/26/2023, Additional history exists Hepatitis C Screening Completed 04/27/2020, 018 Goals Goal Patient Goal Type Associated Problems Recent Progress Patient-Stated? Author [facility] Worsening(12/2018 9:47 AM CDT) Rosa Farfan, RN Note: Patient will describe how unrelieved pain will be managed. Medical Devices Implanted Type Area Building Cleaner Device Identifier Shelf Expiration Date Model / Serial / Lot [employer] 6194-1-001 Simplex High Viscosity Cement Bone - [id number] Implanted:Qty: 1 on 09/19/2019 by Leonardo Landis MD at [facility] Right: Knee [employer] 11/18/2020 6194-1-001 / / [id number] [employer] 6194-1-001 Simplex High Viscosity Cement Bone - [id number] Implanted:Qty: 1 on 09/19/2019 by Leonardo Landis MD at [facility] Right: Knee [employer] 11/18/2020 6194-1-001 / / [id number] Fiiiling [id number] Attune Cement Revision Rotate Platform Knee 6 Baseplate Tibial - [id number] Implanted:Qty: 1 on 09/19/2019 by Leonardo Landis MD at [facility] Right: Knee [employer] [id number] 04/18/2029 [id number] / / [id number] [employer] [id number] Attune Cemented Posterior Stabilize Knee Right 5 Component - [id number] Implanted:Qty: 1 on 09/19/2019 by Leonardo Landis MD at [facility] Right: Knee [employer] [id number] 03/21/2029 [id number] / / [id number] [employer] [id number] Attune 38mm Medialize Dome Component Patellar - [id number] Implanted:Qty: 1 on 09/19/2019 by Leonardo Landis MD at [facility] Right: Knee [employer] [id number] 03/21/2024 [id number] / / [id number] Insert Tibial 5 10mm Knee Aox Post Stab Rotate Platform - [id number] Implanted:Qty: 1 on 09/19/2019 by Leonardo Landis MD at [facility] Right: Knee [employer] [id number] 07/20/2023 [id number] / / [id number] [employer] 5543-A-500 Triathlon 5mm Total Stabilize Knee Posterior 5 Augment Femoral - [id number] Implanted:Qty: 1 on 10/22/2020 by Michael Miller MD at [facility] Right: Knee [employer] [id number] 11/05/2024 5543-A-500 / / [id number] [employer] 5541-A-502 Triathlon 10mm Total Stabilize Knee Right 5 Augment Femoral - [id number] Implanted:Qty: 1 on 10/22/2020 by Michael Miller MD at [facility] Right: Knee [employer] [id number] 04/05/2025 5541-A-502 / / [id number] [employer] 5541-A-502 Triathlon 10mm Total Stabilize Knee Right 5 Augment Femoral - [id number] Implanted:Qty: 1 on 10/22/2020 by Michael Miller MD at [facility] Right: Knee [employer] [id number] 10/16/2024 5541-A-502 / / [id number] [employer] 5560-S-115 Triathlon 15mm 50mm Cemented Total Stabilize End Cap Knee Stem - [id number] Implanted:Qty: 1 on 10/22/2020 by Michael Miller MD at [facility] Right: Knee [employer] [id number] 03/29/2025 5560-S-115 / / [id number] [employer] 5512-F-502 Triathlon Total Stabilizer Knee Right 5 Component Femoral Cocr - [id number] Implanted:Qty: 1 on 10/22/2020 by Michael Miller MD at [facility] Right: Knee [employer] [id number] 10/21/2023 5512-F-502 / / [id number] [employer] 5546-A-501 Triathlon 10mm Total Stabilize Left Medial Right Lateral 5 - [id number] Implanted:Qty: 1 on 10/22/2020 by Michael Miller MD at [facility] Right: Knee [employer] [id number] 12/07/2024 5546-A-501 / / [id number] [employer] 5546-A-502 Triathlon 10mm Total Stabilize Right Medial Left Lateral 5 - [id number] Implanted:Qty: 1 on 10/22/2020 by Michael Miller MD at [facility] Right: Knee [employer] [id number] 11/18/2024 5546-A-502 / / [id number] [employer] 5571-S-025 Triathlon Total Stabilize Knee Femur 25mm Extension Stem - [id number] Implanted:Qty: 1 on 10/22/2020 by Michael Miller MD at [facility] Right: Knee [employer] [id number] 01/27/2024 5571-S-025 / / [id number] [employer] 5560-S-112 Triathlon 12mm 50mm Cement End Cap Knee Stem Femoral Cocr - [id number] Implanted:Qty: 1 on 10/22/2020 by Michael Miller MD at [facility] Right: Knee [employer] [id number] 08/08/2025 5560-S-112 / / [id number] [employer] 5521-B-500 Triathlon Knee 5 Ulm Baseplate Tibial Cocr - [id number] Implanted:Qty: 1 on 10/22/2020 by Michael Miller MD at [facility] Right: Knee [employer] [id number] 07/20/2025 5521-B-500 / / [id number] [employer] 6191-1-010 Simplex P Radiopaque Full Dose Cement Bone Sterile - [id number] Implanted:Qty: 1 on 10/22/2020 by Michael Miller MD at [facility] Right: Knee [employer] 02/18/2022 6191-1-010 / / [id number] [employer] 6191-1-010 Simplex P Radiopaque Full Dose Cement Bone Sterile - [id number] Implanted:Qty: 1 on 10/22/2020 by Michael Miller MD at [facility] Right: Knee [employer] 12/19/2021 6191-1-010 / / [id number] [employer] 6191-1-010 Simplex P Radiopaque Full Dose Cement Bone Sterile - [id number] Implanted:Qty: 1 on 10/22/2020 by Michael Miller MD at [facility] Right: Knee [employer] 02/18/2022 6191-1-010 / / [id number] [employer] 6191-1-010 Simplex P Radiopaque Full Dose Cement Bone Sterile - [id number] Implanted:Qty: 1 on 10/22/2020 by Michael Miller MD at [facility] Right: Knee [employer] [id number] 12/19/2021 6191-1-010 / / [employer] 5537-G-516 Triathlon 16mm Total Stabilize Plus Knee 5 Insert Tibial X3 - [id number] Implanted:Qty: 1 on 10/22/2020 by Michael Miller MD at [facility] Right: Knee [employer] [id number] 10/12/2022 5537-G-516 / / [id number] [employer] [id number] Bioprep Preparation Plug Pattern Cutter Ballico Curette Suction Femoral - [id number] Implanted:Qty: 1 on 10/22/2020 by Michael Miller MD at [facility] Right: Knee [employer] 06/19/2025 [id number] / / [id number] [employer] 5549-A-130 Triathlon Symmetric C Cone Augment Tibial Tritanium Sterile Latex Free - [id number] Implanted:Qty: 1 on 10/22/2020 by Michael Miller MD at [facility] Right: Knee [employer] [id number] 12/07/2024 5549-A-130 / / [id number] [employer] 5543-A-500 Triathlon 5mm Total Stabilize Knee Posterior 5 Augment Femoral - [id number] Implanted:Qty: 1 on 10/22/2020 by Michael Miller MD at [facility] Right: Knee [employer] [id number] 11/08/2024 5543-A-500 / / [id number] [employer] Dx Swivelock Sl 3.5mm 8.5mm Fork Eyelet Monroe Suture Sterile Ar-8978p - [id number] Implanted:Qty: 1 on 06/19/2023 by Doug Sanders MD at [facility] Right: Thumb [employer] 10/20/2027 AR-8978P / / [id number] [employer] Arthrex Dx Fibertak Needle Monroe Suture Sterile Latex Free Ar-8990st - [id number] Implanted:Qty: 1 on 06/19/2023 by Doug Sanders MD at [facility] Right: Thumb [employer] 11/19/2027 AR-8990ST / / [id number] Procedures Procedure Name Priority Date/Time Associated Diagnosis Comments EGFR Routine 09/24/2024 8:34 AM CDT Primary hypertension CHOLESTEROL, LDL, DIRECT Routine 09/24/2024 8:34 AM CDT Primary hypertension VITAMIN D 25 HYDROXY Routine 09/24/2024 8:34 AM CDT Vitamin D deficiency HEMOGLOBIN A1C Routine 09/24/2024 8:34 AM CDT Prediabetes LIPID PANEL Routine 09/24/2024 8:34 AM CDT Primary hypertension COMPREHENSIVE METABOLIC PANEL Routine 09/24/2024 8:34 AM CDT Primary hypertension SCREENING MAMMOGRAM BILATERAL W SD Schedule Routine, Read Routine (OP Routine) 07/08/2020 2:49 PM CDT Encounter for screening mammogram for malignant neoplasm of breast HEPATITIS C ANTIBODY Routine 04/27/2020 11:11 AM [employer] Encounter for hepatitis C screening test for low risk patient THINPREP IMAGING PAP REFLEX HPV MRNA E6/E7 Routine 11/06/2017 11:29 AM CDT Mild cervical dysplasia Cervical high risk HPV (human papillomavirus) test positive from Last 3 Months or Most Recently Relevant to Health Maintenance Results * eGFR (09/24/2024 8:34 AM CDT) eGFR 87 >=60 mL/min/1. 73 m2 Comment: Interpretive Data Reference Interval Normal >/= 90 mL/min/1.73m2 Mildly decreased* 60 - 89 mL/min/1.73m2 Mildly to moderately decreased 45 - 59 mL/min/1.73m2 Moderately to severely decreased 30 - 44 mL/min/1.73m2 Severely decreased 15 - 29 mL/min/1.73m2 Kidney Failure < 15 mL/min/1.73m2 *Relative to young adult level Estimated glomerular filtration rate is determined by the 2020 CKD-EPI equation recommended by the National Kidney Foundation (A Unifying Approach to GFR Estimation: Recommendations of the NKF-ASK Task Force on Reassessing the Inclusion of Race in Diagnosing Kidney Disease, JASN 2020). The CKD-EPI equation should not be used for patients with unstable renal function and has not been validated in children and those over 70. Current interpretive data was last reviewed 2020. Testing performed by: [facility], [address] [place] [address]., [address] Blood 09/24/2024 8:34 AM CDT 09/24/2024 2:42 PM CDT Michael Mills MD LAB BLOOD ORDERABLE S Final Result Performing Organization Address City/[facility] [employer] de Phone Number RENET[facility] [address] [address] [place] [address] * Vitamin D 25 hydroxy (09/24/2024 8:34 AM CDT) Vitamin D 25-OH 32 30 - 80 ng/mL Comment:Testing performed by : [facility], [address] [place] [address]., [address] Blood 09/24/2024 8:34 AM CDT 09/24/2024 2:13 PM CDT Michael Mills MD LAB BLOOD ORDERABLE S Final Result Performing Organization Address City/[facility] [employer] de Phone Number R[facility]ET[facility] [phone] [facility] [place] [address] * (ABNORMAL) Cholesterol, LDL, direct (09/24/2024 8:34 AM CDT) LDL Cholesterol, Direct 202(H) <=129 mg/dL Comment: Interpretive Data Ages < or = 19 years Acceptable: <110 mg/dL Borderline high: 110-129 mg/dL High: >or= 130 mg/dL Ages > or = 20 years Optimal: <100 mg/dL Near optimal: 100-129 mg/dL Borderline high: 130-159 mg/dL High: >160 mg/dL Literature References: 1. Expert Panel on Integrated Guidelines for Cardiovascular Health and Risk Reduction in Children and Adolescents. Pediatrics 2011;128:S213 2. NCEP Expert Panel. Circulation 2004;110:227 Current Interpretive Data was last revised on 2017. Testing performed by: [address] [address] Blood 09/24/2024 8:34 AM CDT 09/24/2024 2:42 PM CDT Narrative RENETTA LAW - 09/24/2024 3:25 PM CDT Cholesterol, LDL, direct reflexed based on Elevated Triglyceride (>400) Michael Mills MD LAB BLOOD ORDERABLE S Edited Result - Final [facility] [id number] [place] [address] Department [place] [address] * Hemoglobin A1c (09/24/2024 8:34 AM CDT) Hgb A1C 5.5 4.0 - 5.6 % Comment:Testing performed by : [address] [address] Estimated Average Glucose 111 mg/dL R[facility]ETTA Comment: The ADA recommends reporting an estimated Average Glucose (eAG) with all Hemoglobin A1c results using the equation derived from a study of 507 normal and diabetic adults. Minority populations were underrepresented and children were not included. (Diabetes Care 31:4578-2384, 2008). The eAG is not equivalent to a fasting glucose. Testing performed by: [address] [address] Blood 09/24/2024 8:34 AM CDT 09/24/2024 2:13 PM CDT Michael Mills MD LAB BLOOD ORDERABLE S Final Result [facility] [address] [facility] Department [place] [address] * (ABNORMAL) Lipid panel (09/24/2024 8:34 AM CDT) Cholesterol 350(H) 30 - 199 mg/dL Comment: Interpretive Data Ages < or = 19 years Acceptable: <170 mg/dL Borderline high: 170-199 mg/dL High: >or= 200 mg/dL Ages > or = 20 years Desirable: <200 mg/dL Borderline high: 200-239 mg/dL High: >or= 240 mg/dL Literature References: 1. Expert Panel on Integrated Guidelines for Cardiovascular Health and Risk Reduction in Children and Adolescents. Pediatrics 2011;128:S213 2. NCEP Expert Panel. Circulation 2004;110:227 Current Interpretive Data was last revised on 2017. Testing performed by: [address] [address] Triglycerides 494(H) <=149 mg/dL R[facility]TA Comment: Interpretive Data Ages < or = 9 years Acceptable: <75 mg/dL Borderline high: 75-99 mg/dL High: >or= 100 mg/dL Ages 10 to 20 years Acceptable: <90 mg/dL Borderline high: 90-129 mg/dL High: >or= 130 mg/dL Ages > or = 20 years Desirable: <150 mg/dL Borderline high: 150-199 mg/dL High: 200-499 mg/dL Very high: >or= 499 mg/dL Literature References: 1. Expert Panel on Integrated Guidelines for Cardiovascular Health and Risk Reduction in Children and Adolescents. Pediatrics 2011;128:S213 2. NCEP Expert Panel. Circulation 2004;110:227 Current Interpretive Data was last revised on 2017. Testing performed by: [address] [address] HDL 43 >=40 mg/dL R[facility]ETTA Comment: Interpretive Data Ages < or = 19 years Acceptable: >45 mg/dL Borderline low: 40-45 mg/dL Low: <40 mg/dL Ages > or = 20 years Desirable: >or= 60 mg/dL Low: <40 mg/dL Literature References: 1. Expert Panel on Integrated Guidelines for Cardiovascular Health and Risk Reduction in Children and Adolescents. Pediatrics 2011;128:S213 2. NCEP Expert Panel. Circulation 2004;110:227 Current Interpretive Data was last revised on 2017. Testing performed by: [facility], [address] [place] [address]., [address] LDL, calculated See Comment <=129 mg/dL R[facility] Comment: Unable to calculate due to elevated Triglycerides. Interpretive Data Ages < or = 19 years Acceptable: <110 mg/dL Borderline high: 110-129 mg/dL High: >or= 130 mg/dL Ages > or = 20 years Optimal: <100 mg/dL Near optimal: 100-129 mg/dL Borderline high: 130-159 mg/dL High: >160 mg/dL Calculated using the Josef LDL-C estimating equation. This equation was implemented on 2023. Prior to this date LDL-C was estimated using the Friedewald equation. Literature References: 1. Expert Panel on Integrated Guidelines for Cardiovascular Health and Risk Reduction in Children and Adolescents. Pediatrics 2011;128:S213 2. NCEP Expert Panel. Circulation 2004;110:227 3. Josef Ace et al. KATHARINE Cardiol. 2019June 19;5(5):540-548. doi: 10.1001/[email or web address] Current Interpretive Data was last revised on 2023. Testing performed by: [address] [address] Non-HDL Cholesterol 307 mg/dL R[facility]ETTA Comment: Interpretive Data Ages < or = 19 years Acceptable: <120 mg/dL Borderline high: 120-144 mg/dL High: >145 mg/dL Ages > or = 20 years When triglycerides are >200 mg/dL, Non-HDL cholesterol is a secondary target of therapy with treatment goals that are 30 mg/dL greater than the LDL cholesterol target. Literature References: 1. Expert Panel on Integrated Guidelines for Cardiovascular Health and Risk Reduction in Children and Adolescents. Pediatrics 2011;128:S213 2. NCEP Expert Panel. Circulation 2004;110:227 Current Interpretive Data was last revised on 2017. Testing performed by: [facility], [address] [place] [address]., [address] Chol/HDL ratio 8 R[facility]ETTA Comment:Testing performed by : [address] [address] Blood 09/24/2024 8:34 AM CDT 09/24/2024 2:13 PM CDT us Michael Mills MD LAB BLOOD ORDERABLE S Final Result [address] Department [place] [address] * (ABNORMAL) Comprehensive metabolic panel (09/24/2024 8:34 AM CDT) Sodium 137 135 - 145 mmol/L Comment:Testing performed by : [address] [address] Potassium, pl 4.5 3.3 - 4.9 mmol/L CERNER Comment:Testing performed by : [address] [address] Chloride 96(L) 97 - 110 mmol/L CERNER Comment:Testing performed by : [address] [address] CO2 30 22 - 32 mmol/L CERNER Comment:Testing performed by : [address] [address] Anion gap 11 2 - 15 mmol/L [facility] Comment:Testing performed by : [address] [address] BUN 18 6 - 25 mg/dL CERNER Comment:Testing performed by : [address] [address] Creatinine 0.80 0.60 - 1.10 mg/dL CERNER Comment:Testing performed by : [address] [address] Glucose 99 70 - 199 mg/dL [facility] Comment: Interpretive Data Fasting glucose >/= 126 mg/dl is diagnostic for diabetes. Fasting is defined as no caloric intake for at least 8 hours. Fasting glucose between 100 mg/dl to 125 mg/dl is diagnostic of prediabetes. In a patient with classic symptoms of hyperglycemia or hyperglycemic crisis, a random glucose >/= 200 mg/dl is diagnostic for diabetes. In the absence of unequivocal hyperglycemia, results should be confirmed by repeat testing. The classification and Diagnosis of Diabetes Diabetes Care 202; 46: S19-S40. Current interpretive data was last revised 2022. Testing performed by: [facility], [address] [place] [address]., [address] Calcium 10.3 8.5 - 10.3 mg/dL CERNER CH Comment:Testing performed by : [address] [address] Bilirubin, total 0.3 0.1 - 1.2 mg/dL CERNER CH Comment:Testing performed by : [address] [address] Protein, pl 7.0 6.5 - 8.5 g/dL CERNER CH Comment:Testing performed by : [address], [address] Albumin 4.2 3.5 - 5.0 g/dL CERNER CH Comment:Testing performed by : [address] [address] Alk phos 95 40 - 130 Units/L CERNER CH Comment:Testing performed by : [address], [address] ALT 21 7 - 45 Units/L CERNER CH Comment:Testing performed by : [facility], [address] [place] [address], [address] AST 22 10 - 45 Units/L CERNER CH Comment:Testing performed by : [address] [address] Blood 09/24/2024 8:34 AM CDT 09/24/2024 2:13 PM CDT us Michael Mills MD LAB BLOOD ORDERABLE S Final Result [facility] [address] Department [place] [address] * (ABNORMAL) Screening Mammogram Bilateral W Sd (07/08/2020 2:49 PM CDT) Anatomical Region Laterality Modality Breast Bilateral Mammography 07/08/2020 4:08 PM CDT Impressions 07/08/2020 4:08 PM CDT 1. Two adjacent asymmetries within the central and posterior right breast on the MLO view only. Further evaluation with spot compression and true lateral views with possible ultrasound are recommended. 2. There is no mammographic evidence of malignancy within the left breast. BI-RADS: 0 - Additional imaging evaluation is necessary. Electronically signed by: Annie Arizmendi MD Narrative 07/08/2020 4:08 PM CDT EXAMINATION: SCREENING MAMMOGRAM BILATERAL W SD ORDERING HEALTHCARE PROVIDER: ARLENE LUCERO HISTORY: Routine screening mammography. COMPARISON: 12/30/2018 and 04/10/2017 TECHNIQUE: CC and MLO views of the bilateral breasts were obtained with digital technique using breast tomosynthesis with C view. Computer aided detection was utilized. FINDINGS: DENSITY: There are scattered fibroglandular elements in the bilateral breasts. BREASTS: There are two adjacent asymmetries within the central and posterior right breast on the MLO view only. There are no suspicious masses, suspicious calcifications, or other suspicious findings in the left breast. us Arlene Lucero DO IMG MAMMO PROCEDURES Final Result * Hepatitis C antibody (04/27/2020 11:11 AM ARROW POINT ATTACHER) Hep C Ab Nonreactive Nonreactive RENETTA HERNANDEZ (JEN) Comment: Interpretive Data Nonreactive: Antibodies to HCV not detected. Does NOT exclude the possibility of recent exposure to HCV. Equivocal: Equivocal for HCV antibodies. Supplemental molecular testing will be automatically performed to determine infection status in accordance with current CDC screening recommendations. Reactive: Positive for HCV antibodies. This may represent current or past HCV infection. Supplemental molecular testing will be automatically performed to determine current infection status in accordance with current CDC screening recommendations. Interpretive data was last revised on 2019. Testing performed by: [facility], [address] [place] [address], [place]., [address] Blood specimen (specimen) 04/27/2020 11:11 AM ARROW POINT ATTACHER 04/27/2020 2:17 PM ARROW POINT ATTACHER Arlene Lucero DO LAB MICROBIOLOGY - GENERAL ORDERABLES Final Result RENETTA HERNANDEZ JEN) 1 [facility] Department [place] [address] * ThinPrep Imaging Pap Reflex HPV mRNA E6/E7 (11/06/2017 11:29 AM CDT) Report status CANCELED [facility] Comment:Result canceled by t he ancillary CLINICAL INFORMATION: [facility] Comment:Information not prov ided LMP [facility] Comment:Information not prov ided Previous Pap [facility] Comment:Information not prov ided Prev. Bx [facility] Comment:Information not prov ided SOURCE: [facility] Comment:Information not prov ided Pap, specimen adequacy [facility] Comment: Satisfactory for evaluation. Endocervical/transformation zone component present. Age and/or menstrual status not provided Pap, general categorization [facility] Comment:Result canceled by t he ancillary HPV interp [facility] Comment:Negative for intraep ithelial lesion or malignancy. Infection: CANCELED [facility] Comment:Result canceled by t he ancillary COMMENTS [facility] Comment: This Pap test has been evaluated with computer assisted technology. Investments Manager [facility] - Comment: JANE CASTRO(ASCP) CT screening location: [place] [address] [place] [address] Review e learning developer [facility] - Comment: SHIRA CT(ASCP) CT screening location: [place] [address] [place] [address] Pathologist [facility] Comment:Result canceled by t he ancillary Comment [facility] Comment: EXPLANATORY NOTE: The Pap is a screening test for cervical cancer. It is not a diagnostic test and is subject to false negative and false positive results. It is most reliable when a satisfactory sample, regularly obtained, is submitted with relevant clinical findings and history, and when the Pap result is evaluated along with historic and current clinical information. Endocervical/vag inal 11/06/2017 11:29 AM CDT 11/07/2017 1:17 PM CDT Narrative Resulting Agency Comment Performing Organization Information: Site ID: [place] Name: [facility] Address: [address] [place] [address] Director: Stephanie Kohler Torsten Oliver MD LAB PATHOLOGY ORDERABLES F inal Result [facility] Scout [place] from Last 3 Months or Most Recently Relevant to Health Maintenance Insurance [facility] [employer] [facility] O O Advance Directives For more information, please contact: [phone] * Full Code (Latest Code Status on File) Date Activated Date Inactivated Comments 10/22/2020 6:13 PM 10/23/2020 3:46 PM * Full Code Date Activated Date Inactivated Comments 09/19/2019 6:42 PM 09/21/2019 4:03 PM * Full Code Date Activated Date Inactivated Comments 12/31/2018 12:58 PM 01/03/2019 6:25 PM * Full Code Date Activated Date Inactivated Comments 07/29/2018 7:57 AM 07/29/2018 3:26 PM * Full Code Date Activated Date Inactivated Comments 07/29/2018 7:57 AM 07/29/2018 7:57 AM Care Teams Overnight Associate Relationship Specialty Start Date End Date Michael Mills MD [address] [facility] [address] [place] [address] PCP - General Family Practice 09/26/23 Rosa Robison, RN Registered Nurse 02/08/17 Annie Galan, ELLEN Registered Nurse Pain Management 04/10/17 Shin Rainey MD [address] [place] [address] [address] [place] [address] Consulting Physician Neurology 03/18/19 Gianluca Flores MD [address] [place] [address] [address] [place] [address] Consulting Physician General Surgery 03/18/19 Rosio Cristobal DO [address] [place] [address] [address] [place] [address] Consulting Physician Otolaryngology 03/18/19 Michael Miller MD [address] [facility] [address] [place] [address] Consulting Physician Orthopedic Surgery 10/23/20 [place] [address] [facility] [address] [place] [address] Consulting Physician Orthopedic Surgery 03/16/22
--- OUTSIDE RECORDS SUMMARY | 2024-12-10 08:39 | XMS_ITS | Clinical Summary ---
Author Organization [facility] [employer] Address [address] [place] [address] Care Team Providers Care Textile Conversion Manager Name Role Phone Unavailable Primary Care Provider Unavailabl e Source Comments [facility],non-owned Affiliates and Associated Physician Practices is amultiple site organization consisting of ambulatory clinics and hospital sitesin [place], [place], [place] and [place]. This disclosure is being madepursuant to the Care Everywhere program and may not contain all information available regarding this patient. Last updated 17.[facility] [employer] Allergies Active Allergy Reactions Criticality Noted Date Comments Propoxyphene N-Apap 11/16/2016 Medications * Be aware that medications may not be up to date on this document. Alwaysverify current medications with the patient. metoprolol tartrate (LOPRESSOR) 100 MG tabletIndications:H ypertension Take 1 Tab by mouth once daily Reasons: High Blood Pressure Disorder 30 Tab 7 Active simvastatin (ZOCOR) 40 MG tabletIndications:H yperlipidemia, unspecified hyperlipidemia type Take 1 Tab by mouth at bedtime 30 Tab 7 Active Social History Tobacco Use Types Packs/Day Years Used Date Smoking Tobacco: Never Assessed Comments Unknown Sex and Gender Information Value Date Recorded Sex Assigned at Not on file Legal Sex Female 11:45 AM CDT Gender Identity Not on file Sexual Orientation Not on file Last Filed Vital Signs Vital Sign Reading Time Taken Comments Blood Pressure 140/94 11/16/2016 12:14 PM CDT Pulse 95 11/16/2016 12:14 PM CDT Temperature 37.1 C (98.8 F) 11/16/2016 12:14 PM CDT Respiratory Rate 18 11/16/2016 12:14 PM CDT Oxygen Saturation 97% 11/16/2016 12:14 PM CDT Inhaled Oxygen Concentration - - Weight 86.2 kg (190 lb) 11/16/2016 12:14 PM CDT Height 165.1 cm (5' 5) 11/16/2016 12:14 PM CDT Body Mass Index 31.62 11/16/2016 12:14 PM CDT Plan of Treatment Health Maintenance Due Date Last Done Comments COLOGUARD (AGES 45-75) - COL ON CA SCREENING 1969 COLON MONITORING 1969 COLONOSCOPY - COLON CA SCREENING 1969 CT COLONOGRAPHY - COLON CA SCREENING 1969 Colorectal Cancer Screening 1969 FIT - COLON CA SCREENING 1969 FLEX SIG - COLON CA SCREENING 1969 MAMMOGRAM 1969 HIV SCREENING 1984 HEPATITIS C SCREENING 05/07/1987 DTAP/TDAP/TD VACCINES (1 - Tdap) 1988 HEPATITIS B VACCINE (1 of 3 - 19+ 3-dose series) 1988 SCREENING FOR DIABETES 11/16/2016 PNEUMOCOCCAL VACCINE 50+ (1 of 1 - PCV) 05/12/2019 ZOSTER VACCINE (1 of 2) 05/12/2019 DEPRESSION SCREENING 02/20/2024 COVID-19 VACCINE (1 - 2023-2 5 season) 2024 INFLUENZA VACCINE (#1) 2024 HIB VACCINE Aged Out No longer eligi ble based on patient's age to complete this topic HPV VACCINE Aged Out No longer eligi ble based on patient's age to complete this topic MENINGOCOCCAL (Group B) VACC INE SHARED DECISION-MAKING Aged Out No longer eligibl e based on patient's age to complete this topic MENINGOCOCCAL GROUPS A/C/Y/W VACCINE Aged Out No longer eligible b ased on patient's age to complete this topic Insurance [employer] [facility] Address: [facility] [id number] [place] [address]
--- OUTSIDE RECORDS SUMMARY | 2024-12-10 08:39 | XMS_ITS | Patient Health Record ---
Author Organization [facility] Address [address] [facility] [address] Support Name Relationship Address Phone Michelle Lipscomb Guarantor Unknown Reason For Referral No Information Plan Of Treatment No Information
--- OUTSIDE RECORDS SUMMARY | 2024-12-10 08:39 | XMS_ITS | Encounter Summary ---
Author Organization [facility] Address [address] [place] [address] Phone Care Team Providers Care Policy Change Clerk Name Role Phone Rosa Robison RN Unavailable UnavailAnnie Keys RN Unavailable Unavailab Kadie Moon DO Primary Care Provider [phone]- [phone] Shin Rainey MD Unavailable [phone] Gianluca Flores MD Unavailable Rosio Cristobal DO Unavailable [phone] Michael Miller MD Unavailable [phone] Leonardo Landis MD Unavailable [phone] Michael Mills MD Primary Care Provi arnold Encounter Details Date Type Department Care Team (Late st Contact Info) Description 03/16/2020 Telephone [facility] Medicine [facility] [address] [place] [address] Candace Kruse LPN Social History Tobacco Use Types Packs/Day Years Used Date Smoking Tobacco: Former Cigarettes 1 29 1 984 - 2012 Smokeless Tobacco: Never Comments:Smoking History Pac ks/day: 1 Packs Alcohol Use Standard Drinks/Week Comments Yes 1 (1 standard drink = 0.6 oz pur e alcohol) socially PHQ-2 Answer Date Recorded PHQ-2 Total Score (If total score is 3 or more points, staff should administer the PHQ-9) 6 12/25/2019 Comments No Sex and Gender Information Value Date Recorded Sex Assigned at Not on file Legal Sex Female 12:34 AM LABEL DRIER Gender Identity Not on file Sexual Orientation [...] COVID: Suspected 04/17/2024 04/17/2024 04/17/2024 4:23 PM LABEL DRIER documented as of this encounter Care Teams Policy Change Clerk Relationship Specialty Start Date End Date Kadie Lucero DO PCP - General Family Medicine 01/24/19 09/25/23 Michael Mills MD [address] [place] [address] [address] PCP - General Family Practice 09/26/23 Rosa Robison, RN Registered Nurse 02/08/17 Stucker, Annie Farzana, RN Registered Nurse Pain Management 04/10/17 Shin Rainey MD [address] [facility] [address] [facility] [place] [address] Consulting Physician Neurology 03/18/19 Gianluca Flores MD [address] [facility] [address] [place] [address] Consulting Physician General Surgery 03/18/19 Rosio Cristobal DO [address] [facility] [address] [place] [address] Consulting Physician Otolaryngology 03/18/19 Michael Miller MD [address] [facility] [address] [place] [address] Consulting Physician Orthopedic Surgery 10/23/20 [place] [address] [facility] [address] [place] [address] Consulting Physician Orthopedic Surgery 03/16/22 documented as of this encounter
== END 2024-12-10 08:18 | disposition home or self-care (01) ==
PROVIDERS: PCP Family Medicine; Visit Provider Nurse Practitioner Family
DX: M16.11 Unilateral primary osteoarthritis, right hip (principal)
CPT/HCPCS: 20610; 77002; J1010; Q9966